=== PATIENT | male | born 1965 | race Caucasian/White ===

== ENCOUNTER 2019-05-15 05:24 | Inpatient (IN) ==
--- NOTE | 2019-05-08 17:21 | EKG Report ---
Test Performed on : 05/08/2019 5:09:14 PM Test Reason : JOINT CAMP/PAT Blood Pressure : / mmHG Vent. Rate : 083 BPM Atrial Rate : 083 BPM P-R Int : 114 ms QRS Dur : 092 ms QT Int : 370 ms P-R-T Axes : -08 035 -22 degrees QTc Int : 434 ms Normal sinus rhythm. T wave abnormality, consider inferior ischemia Abnormal ECG No previous ECGs available Confirmed by Madison Guerra MD ([id number]) on 05/13/2019 8:30:57 AM
[2019-05-08 17:55] LABS: BASO# 0.02 X1000 (0.0-0.2); BASO% 0.3 % (0.0-0.8); EOS# 0.43 X1000 (0.0-0.7); EOS% 5.7 % (0.0-10.0); HEMATOCRIT 45.1 % (42.0-52.0); HEMOGLOBIN 15.1 g/dL (14.0-18.0); IMM GRAN# 0.04 X1000 (0.0-0.04); IMM GRAN% 0.5 % (0.0-0.5); LYMPH% 31.8 % (20.5-51.1); MCHC 33.5 g/dL (33-37); MCV 89.7 FL (81-99); MONO# 0.56 X1000 (0.11-0.59); MONO% 7.4 % (1.7-9.3); MPV 9.3 FL (7.4-10.4); NEUT# 4.09 X1000 (1.4-6.5); NEUT% 54.3 % (42.2-75.2); PLT 253 X1000 (130-400); RBC 5.03 XMIL (4.7-6.1); RDW 14.4 % (11.5-14.5); WBC 7.54 X1000 (4.8-10.8)
[2019-05-08 18:04] LABS: INR 0.86; PROTIME 11.7 Seconds (11.0-16.0)
[2019-05-08 18:05] LABS: PTT 34.2 Seconds (22.3-41.8)
[2019-05-08 18:11] LABS: AGAP 13; ALBUMIN 4.7 g/dL (3.5-5.0); BUN 22 mg/dL (8-22); CALCIUM 9.9 mg/dL (8.8-10.2); CHLORIDE 102 mmol/L (98-107); COSMO 282; ESTIMATED GFR > 60; GLUCOSE 113 mg/dL (70-104); POTASSIUM 4.5 mmol/L (3.5-5.1); SODIUM 139 mmol/L (136-145); TCO2 24 mmol/L (25-35)
[2019-05-08 22:23] LABS: URINE SOURCE CLEAN CATCH
[2019-05-08 22:34] LABS: BILIRUBIN URINE NEGATIVE (NEGATIVE); BLOOD URINE NEGATIVE (NEGATIVE); COLOR YELLOW; GLUCOSE URINE NEGATIVE (NEGATIVE); KETONE URINE NEGATIVE (NEGATIVE); LEUKOCYTES URINE NEGATIVE (NEGATIVE); NITRITE URINE NEGATIVE (NEGATIVE); PH URINE 5.5; PROTEIN URINE NEGATIVE (NEGATIVE); SP GRAVITY URINE 1.016; TURBIDITY URINE CLEAR (CLEAR); UR EPITHELIAL CELLS <10 /HPF (<10); URINE BACTERIA NEGATIVE /HPF; URINE RBC <10 /HPF (<10); URINE WBC <10 /HPF (<10); UROBILINOGEN URINE NORMAL (NORMAL)
[2019-05-15] MEDS ORDERED: REGLAN ONE (06:00)
[2019-05-15] MEDS ORDERED: COLACE ONE (06:00)
[2019-05-15] MEDS ORDERED: PEPCID ONE (06:00)
[2019-05-15] MEDS ORDERED: LYRICA ONE (06:00)
[2019-05-15] MEDS ORDERED: CELEBREX ONE (06:00)
[2019-05-15] MEDS ORDERED: KEFZOL 1 GM/D5W 2 GM/100 ML IVPB ONE (06:01)
[2019-05-15] MEDS ORDERED: LR 1,000 ML ONE (06:01)
[2019-05-15] MEDS ORDERED: DIPRIVAN 1% ONE (06:21)
[2019-05-15] MEDS ORDERED: FENTANYL ONE (06:21)
[2019-05-15] MEDS ORDERED: ZOFRAN ONE (06:23)
[2019-05-15] MEDS ORDERED: TORADOL ONE (06:31)
[2019-05-15] MEDS ORDERED: VANCOMYCIN ONE (06:31)
[2019-05-15] MEDS ORDERED: DURAMORPH ONE (06:31)
[2019-05-15] MEDS ORDERED: SENSORCAINE 0.25%/EPI 1:200,000 ONE (06:32)
[2019-05-15] MEDS ORDERED: EXPAREL 1.3% ONE (06:32)
[2019-05-15] MEDS ORDERED: SODIUM CHLORIDE 0.9% ONE (06:32)
[2019-05-15] MEDS ORDERED: ROBINUL ONE (07:09)
[2019-05-15] MEDS: CYKLOKAPRON 1,000 MG/NS 2,000 MG/200 ML IVPB ONE ×2 (07:15→08:40)
[2019-05-15] MEDS ORDERED: DILAUDID ONE (07:21)
[2019-05-15] MEDS ORDERED: OFIRMEV 1000 MG/ISOTONIC SOLN 1,000 MG/100 ML BOTTLE ONE (07:25)
[2019-05-15] MEDS ORDERED: NS 1,000 ML ONE (09:20)
[2019-05-15] MEDS ORDERED: OXY IR ONE ×2 (09:28→09:30)
--- NOTE | 2019-05-15 09:37 | Diag Imaging Result Doc PS360 ---
EXAM: KNEE 1-2 VIEWS-LEFT 05/15/2019 HISTORY: LTKA TECHNIQUE: Left knee two views COMMENT: There is a total knee arthroplasty. There is no evidence of acute fracture or other acute bony abnormality. IMPRESSION: Postsurgical changes. Electronically signed by Duc Coffman 05/15/2019 9:35 AM
[2019-05-15] MEDS ORDERED: ZOFRAN PO PRN (10:15)
[2019-05-15] MEDS ORDERED: MORPHINE IV PRN ×3 (10:15)
[2019-05-15] MEDS ORDERED: OXY IR PO PRN (10:15)
[2019-05-15] MEDS: NS 1,000 ML IV SCH ×2 (10:30→23:07)
--- NOTE | 2019-05-15 11:40 | OPERATIVE NOTE ---
PROCEDURE DATE: 05/15/2019 PREOPERATIVE DIAGNOSIS: Degenerative osteoarthritis, left knee. POSTOPERATIVE DIAGNOSIS: Degenerative osteoarthritis, left knee. PROCEDURE: Left total knee arthroplasty with DePuy Attune size 7 posterior stabilized femur, a size 7 tibial tray, a 7 mm rotating platform tibial insert, and a 38 mm medialized anatomic patella. SURGEON: Dr. Abhi Tong. LATHE WINDER: Thania Ramirez, who was necessary for proper retraction and manipulation of the extremity during the case and improved efficiency. SECOND REIMBURSEMENT SPEC: Clifford Silverman RN. ANESTHESIA: Spinal. IV FLUIDS: 1000 mL lactated Ringer's. ESTIMATED BLOOD LOSS: 20 mL. TOURNIQUET TIME: 80 minutes at 350 mmHg. COMPLICATIONS: None. INDICATION: The patient is a pleasant 54-year-old male with a chronic history of pain and discomfort in his left knee. He has continued pain and discomfort despite appropriate nonoperative treatment. Radiographic studies revealed degenerative osteoarthritis. Recommendation to proceed with left total knee arthroplasty was offered. Risks and benefits of surgery were explained including the risks of anesthesia, , bleeding, infection, failure to relieve pain, postoperative stiffness, nerve injury, blood clots, and other imponderables. All questions were answered and the patient and family wished to proceed with surgery. DETAILS OF OPERATION: The patient was taken to the operating room and placed supine on operating table. Once adequate anesthesia was obtained, patient's left lower extremity was subsequently prepped and draped in usual sterile fashion. Esmarch was used to exsanguinate the left lower extremity and the tourniquet was inflated to 300 mmHg. A standard anterior incision was made with a skin knife. Medial and lateral skin envelopes were developed. Standard medial parapatellar arthrotomy was performed. Patella fat pad was excised. Retractor was then placed. Approximately 1 cm anterior to the PCL insertion, a starting reamer was passed. Intramedullary guide with a distal femoral cutting block was pinned into position. Distal femoral cut was then performed. A sizing block was placed and measured a size 7. Corresponding pins were placed. A size 7 cutting block was placed in position. Anterior, posterior and chamfer cuts were then made. Using the extramedullary guide, the proximal tibia was resected. Had good alignment confirmed with the alignment mari. The medial and lateral menisci were excised. A curved osteotome was used to remove the posterior osteophytes off the distal femur. Attention turned back to the proximal tibia. A 7 tibial tray appeared to the correct size. This was pinned in position. This followed by a central reamer and a fin punch. A box cutting guide was pinned on the distal femur, the box cut was performed. The trial tibial insert was then placed and had good soft tissue balancing. The patella was everted and resected in standard fashion. A size 38 appeared to the correct size. Drill holes were placed. Trial components were then placed and had good patellofemoral tracking. The trial components were then removed. Vancomycin was mixed with cement on the back table. Copious irrigation was performed with antibiotic pulsatile lavage. Sequential cementing was then performed first with the tibial tray and excess cement was removed with a [place], followed by the femoral component and excess cement was removed with a [place], followed by trial tibial insert in full extension. Axial loading was maintained while the cement cured. The patellar component was cemented in standard fashion. Patella clamp was placed. While the cement was curing, Exparel was placed in the deep soft tissue as well as the subcutaneous tissue. After the cement had cured, peripheral cement was removed with a small osteotome. A 7 mm rotating platform tibial insert appeared to the correct size. The trial insert was removed. Copious irrigation was performed once again with antibiotic pulsatile lavage. Exparel was placed in the deep posterior capsule. Copious irrigation then performed once again. A size 7 mm rotating platform tibial insert was then placed. The knee was then carried through range of motion with good soft tissue balancing and good range of motion and good patellofemoral tracking. A 1/8 Hemovac drain was placed and was not sewn in. Copious irrigation was then performed once again with antibiotic pulsatile lavage. A #1 Vicryl was used to repair the arthrotomy, 2-0 Vicryl was used to repair the subcutaneous tissue, followed by skin timothy. Adaptic, sterile 4 x 4, ABD pad, Webril, cryo unit, and Kishor wrap was applied to the left lower extremity. Patient tolerated the procedure well, was transferred to the recovery room in stable condition. cc: Abhi Tong MD
[2019-05-15] MEDS ORDERED: PNEUMOVAX 23 IM ONE (13:15)
[2019-05-15] MEDS: KEFZOL 2 GM/D5W 2 GM/50 ML IVPB IV SCH ×2 (14:55→23:06)
[2019-05-15] MEDS: TYLENOL PO SCH ×2 (14:55→20:12)
[2019-05-15] MEDS: NICODERM PATCH TD SCH (17:09)
[2019-05-15] MEDS: OXY IR PO PRN ×2 (18:04→23:04)
[2019-05-15] MEDS: PERIDEX MT SCH (20:12)
[2019-05-16] MEDS: OXY IR PO PRN ×3 (03:17→11:10)
[2019-05-16] MEDS: TYLENOL PO SCH ×2 (03:17→11:10)
[2019-05-16] MEDS ORDERED: PEPCID PO ONE (03:20)
[2019-05-16] MEDS: COLACE PO SCH ×2 (04:11→11:10)
[2019-05-16] MEDS ORDERED: XARELTO PO SCH (06:00)
[2019-05-16 06:24] LABS: HEMATOCRIT 36.4 % (42.0-52.0); HEMOGLOBIN 11.8 g/dL (14.0-18.0)
[2019-05-16 06:58] LABS: AGAP 11; BUN 17 mg/dL (8-22); CALCIUM 8.8 mg/dL (8.8-10.2); CHLORIDE 99 mmol/L (98-107); COSMO 277; CREATININE 0.7 mg/dL (0.7-1.2); ESTIMATED GFR > 60; GLUCOSE 154 mg/dL (70-104); POTASSIUM 3.9 mmol/L (3.5-5.1); SODIUM 136 mmol/L (136-145); TCO2 26 mmol/L (25-35)
[2019-05-16 07:38] VITALS: BP 175/93
[2019-05-16] MEDS ORDERED: PNEUMOVAX 23 IM ONE (07:40)
--- NOTE | 2019-05-16 07:41 | ORTHOPAEDICS PROGRESS NOTE ---
DATE: 05/16/2019 SUBJECTIVE: The patient is a pleasant 54-year-old male who is 1 day status post left total knee arthroplasty. He is currently resting comfortably. He was able to ambulate with physical therapy yesterday. OBJECTIVE: On physical exam, patient's left lower extremity wound looks good. There are no signs or symptoms of infection. Calf is soft. He has active dorsiflexion and plantar flexion. He is neurovascularly intact distally. LABORATORY DATA: Hemoglobin is 11.8, hematocrit 36.4. IMPRESSION: Postoperative day #1 status post left total knee arthroplasty. PLAN: At this point, we will plan on discharging home after physical therapy. We will arrange for home physical therapy. Patient will follow up in the office on 05/27/2019. cc: Abhi Tong MD
[2019-05-16] MEDS: NICODERM PATCH TD SCH (11:10)
[2019-05-16] MEDS: PERIDEX MT SCH (11:11)
== END 2019-05-16 11:52 | disposition home health service (06) | DRG 470 ==
LOC: OR 05:24 → 4N 08:44
PROVIDERS: ADMIT Orthopaedic Surgery Adult Reconstructive Orthopaedic Surgery; ATTEND Orthopaedic Surgery Adult Reconstructive Orthopaedic Surgery